=== PATIENT | female | born 1975 | race Caucasian/White ===

== ENCOUNTER 2020-08-03 13:50 | Emergency (ER) | payer BC, OTHER ==
[2020-08-03 16:36] LABS: HEMOGLOBIN 13.2 gm/dl (12.3-15.3); RED BLOOD COUNT 4.15 M/UL (4.00-5.10); WHITE BLOOD COUNT 7.5 K/UL (4.5-11.0)
[2020-08-03 16:56] LABS: BUN/CREATININE RATIO 19 (0-10)
== END 2020-08-03 18:00 | disposition home or self-care (01) ==
LOC: ER1 13:50
PROVIDERS: Emergency Medicine
DX: R10.32 Left lower quadrant pain (principal); E11.9 Type 2 diabetes mellitus without complications; I10 Essential (primary) hypertension; Z90.710 Acquired absence of both cervix and uterus
CPT/HCPCS: 80053; 81001; 83605; 83690; 85025; 96374; 96375; 99284; J2270; J2405; J7030; Q9967